=== PATIENT | female | born 1970 | race Caucasian/White ===

== ENCOUNTER 2019-07-31 11:02 | Inpatient (IN) | payer BC ==
[2019-07-31 12:31] LABS: #Eosinphils 0.2 thou/uL (0.0-0.7); #Lymphocytes 1.5 thou/uL (1.20-3.40); #Monocytes 0.7 thou/uL (0.11-0.59); #Neutrophils 8.9 thou/uL (1.40-6.50); %Basophils 0.3 % (0.0-1.0); %Eosinophils 1.4 % (0.0-10.0); %Lymphocytes 13.3 % (21.0-51.0); %Monocytes 5.8 % (0.0-10.0); %Neutrophils 79.1 % (42.0-75.0); Hemoglobin 14.1 g/dL (12.0-16.0); Mean Corpuscular HGB CONC 33.4 g/dL (32.0-36.0); Mean Platelet Volume 7.5 fL (7.4-10.4); Platelet Count 253 thou/uL (130-400); RBC Distribution Width 11.6 % (11.5-14.5); Red Blood Cell (RBC) Count 4.27 mill/uL (4.20-5.40); White Blood Cell (WBC) Count 11.2 thou/uL (4.8-10.8)
[2019-07-31 12:47] LABS: Band 14 % (5-11); Lymphocytes 12 % (21-51); MDiff Complete? YES; Monocytes 8 % (0-10); Neutrophil 65 % (42-75); Platelet Morphology Comment Appears Adequate; RBC Morphology Normal; Reactive Lymphocytes 1 % (0-10)
[2019-07-31 12:49] LABS: ALT (SGPT) 42 U/L (8-55); AST (SGOT) 21 U/L (5-34); Albumin 4.6 g/dL (3.5-5.0); Alkaline Phosphatase 87 U/L (40-110); Anion Gap 12 mmol/L (10-20); BUN (Urea Nitrogen) 15 mg/dL (7.0-18.7); Bilirubin, Total 0.4 mg/dL (0.2-1.2); Calc. Creatinine Clearance 0 mL/min (70-130); Calcium 9.6 mg/dL (7.8-10.44); Carbon Dioxide 26 mmol/L (22-29); Chloride 104 mmol/L (98-107); Estimated GFR-MDRD 54; Globulin 3.5 g/dL (2.4-3.5); Glucose 89 mg/dL (70-105); Protein, Total 8.1 g/dL (6.0-8.3); Sodium 138 mmol/L (136-145)
[2019-07-31] MEDS ORDERED: Lidocaine 1% w/Epinephrine 1:100K 20 ML VIAL NERVE BLCK SCH (13:15)
[2019-07-31] MEDS ORDERED: Clindamycin/D5W 900 MG in Premix Bag 1 BAG IVPB SCH (13:15)
[2019-07-31] MEDS ORDERED: Ketorolac Tromethamine 30 MG/ML VIAL IVP SCH (13:15)
[2019-07-31] MEDS ORDERED: Ketorolac Tromethamine 30 MG/ML VIAL ONE (13:23)
[2019-07-31] MEDS ORDERED: Clindamycin/D5W 900 mg/50 ml Premix Bag ONE (13:23)
[2019-07-31] MEDS ORDERED: Lidocaine 1% w/Epinephrine 1:100K 20 ML VIAL ONE (13:23)
[2019-07-31] MEDS ORDERED: Morphine 4 MG/ML VIAL ONE (13:50)
[2019-07-31] MEDS ORDERED: traMADol HCl 50 MG TAB PO PRN (16:12)
[2019-07-31 17:38] VITALS: BMI 31.8
--- NOTE | 2019-07-31 20:06 | PDOC.HHP ---
Hospitalist HPI - History of Present Illness abscess on face History of Present Illness: 49yo F w/ no MHx presents with facial abscess. Went to urgent care last sunday for swelling, prescribed bactrim (4d), didn't improve so prescribed augmentin (2d), but abscess continued to grow and tenderness worsened. On encounter, has no complaints other than the unresolving abscess. Denies fevers, chills, night sweats, facial trauma or shaving, tooth pain, recent travel, diabetes, or immunodeficiency. ED Course: In the ED, aspirated pus, was administered clindamycin, and was admitted to the floor for continued treatment. Hospitalist ROS - Review of Systems Constitutional: denies: fever, chills, sweats, weakness, malaise, other Eyes: denies: vision change, conjunctivae inflammation, eyelid inflammation, redness ENT: denies: mouth pain, mouth swelling, throat pain, throat swelling Respiratory: denies: cough, dry, shortness of breath, hemoptysis, SOB with excertion, pleuritic pain, sputum, wheezing, other Cardiovascular: denies: chest pain, palpitations, orthopnea, paroxysmal noc. 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 Gastrointestinal: reports: no pertinent history Heme/Onc: reports: no pertinent history - Past Surgical History Other Surgical History: x 2, breast reduction, gastric bypass - Family History Family History: reports: hypertension - Social History Smoking Status: Never smoker Alcohol: reports: Occassional Drugs: reports: none Living Situation: With Family Domestic Violence: Negative Activity level: independent ambulation - Exam General Appearance: NAD, awake alert Eye: PERRL, anicteric sclera ENT: no oropharyngeal lesions, moist mucosa Neck: no JVD Neck - other findings: left submandibular lymphadenopathy Heart: RRR, no murmur, no gallops, no rubs, normal peripheral pulses Respiratory: CTAB, no wheezes, no rales, no ronchi, normal chest expansion, no tachypnea, normal percussion Gastrointestinal: soft, non-tender, non-distended, normal bowel sounds, no palpable masses, no hepatomegaly, no splenomegaly, no bruit Skin - other findings: left indurated, fluctuant, draining, tender, rigid abscess about 5cm diamet Neurological: cranial nerve grossly intact, normal sensation to touch, no weakness, no focal deficits, no new deficit Hospitalist Results - Labs Result Diagrams: 07/31/19 12:14 07/31/19 12:14 Lab results: WBC 11.2 thou/uL (4.8-10.8) H 07/31/19 12:14 Hgb 14.1 g/dL (12.0-16.0) 07/31/19 12:14 Hct 42.3 % (36.0-47.0) 07/31/19 12:14 MCV 99.0 fL (78.0-98.0) H 07/31/19 12:14 Plt Count 253 thou/uL (130-400) 07/31/19 12:14 Neutrophils % 79.1 % (42.0-75.0) H 07/31/19 12:14 Band Neuts % (Manual) 14 % (5-11) H 07/31/19 12:14 Sodium 138 mmol/L (136-145) 07/31/19 12:14 Potassium 4.0 mmol/L (3.5-5.1) 07/31/19 12:14 Chloride 104 mmol/L (98-107) 07/31/19 12:14 Carbon Dioxide 26 mmol/L (22-29) 07/31/19 12:14 BUN 15 mg/dL (7.0-18.7) 07/31/19 12:14 Creatinine 1.08 mg/dL (0.6-1.1) 07/31/19 12:14 Glucose 89 mg/dL (70-105) 07/31/19 12:14 Calcium 9.6 mg/dL (7.8-10.44) 07/31/19 12:14 Total Bilirubin 0.4 mg/dL (0.2-1.2) 07/31/19 12:14 AST 21 U/L (5-34) 07/31/19 12:14 ALT 42 U/L (8-55) 07/31/19 12:14 Alkaline Phosphatase 87 U/L (40-110) 07/31/19 12:14 Serum Total Protein 8.1 g/dL (6.0-8.3) 07/31/19 12:14 Albumin 4.6 g/dL (3.5-5.0) 07/31/19 12:14 Hospitalist H&P A/P - Problem (1) Abscess of face Code(s): L02.01 - CUTANEOUS ABSCESS OF FACE Status: Acute - Plan Plan: -qSOFA 0, HD stable, and no compromise of swallowing or breathing -afebrile on presentation however, endorses being febrile when initially had abscess -could not appreciate orophalyngeal lesions however difficult to visualize due to swelling -not in nasolabial triangle -ED aspirated fluid and sent for cultures Plan: -started vancomycin pending cultures -consulted surgery since unlikely to resolve without debridment considering failed outpatient treatment and characteristics of abscess Dispo/PPx: Full code GI PPx: no Ix DVT PPx: SCD
[2019-07-31] MEDS ORDERED: Vancomycin 1.5 GRAM/300 ML BAG 1.5 GM in Premix Bag 1 BAG IVPB SCH (20:30)
[2019-07-31] MEDS ORDERED: Trospium 20 MG TAB PO SCH (21:00)
[2019-07-31] MEDS ORDERED: Acetaminophen 325 MG TAB PO PRN (21:17)
[2019-07-31] MEDS: Acetaminophen/Codeine 30-300mg Tablet PO PRN (21:26)
[2019-08-01] MEDS: Acetaminophen/Codeine 30-300mg Tablet PO PRN ×2 (04:55→10:22)
[2019-08-01 06:05] LABS: #Basophils 0.1 thou/uL (0.0-0.2); #Eosinphils 0.1 thou/uL (0.0-0.7); #Lymphocytes 2.2 thou/uL (1.20-3.40); #Monocytes 0.6 thou/uL (0.11-0.59); #Neutrophils 5.4 thou/uL (1.40-6.50); %Basophils 0.8 % (0.0-1.0); %Eosinophils 1.5 % (0.0-10.0); %Lymphocytes 26.3 % (21.0-51.0); %Monocytes 6.9 % (0.0-10.0); %Neutrophils 64.5 % (42.0-75.0); Hemoglobin 11.3 g/dL (12.0-16.0); Mean Corpuscular HGB CONC 32.9 g/dL (32.0-36.0); Mean Corpuscular Hemoglobin 32.1 pg (27.0-31.0); Mean Corpuscular Volume 97.8 fL (78.0-98.0); Mean Platelet Volume 7.9 fL (7.4-10.4); Platelet Count 225 thou/uL (130-400); RBC Distribution Width 11.5 % (11.5-14.5); Red Blood Cell (RBC) Count 3.51 mill/uL (4.20-5.40); White Blood Cell (WBC) Count 8.3 thou/uL (4.8-10.8)
[2019-08-01 06:24] LABS: Anion Gap 12 mmol/L (10-20); BUN (Urea Nitrogen) 17 mg/dL (7.0-18.7); Calc. Creatinine Clearance 84 mL/min (70-130); Carbon Dioxide 23 mmol/L (22-29); Chloride 107 mmol/L (98-107); Estimated GFR-MDRD 61; Glucose 89 mg/dL (70-105); Potassium 4.5 mmol/L (3.5-5.1); Sodium 137 mmol/L (136-145)
[2019-08-01] MEDS ORDERED: Enoxaparin Sodium 30 MG/0.3 ML SYRINGE SC SCH (09:00)
[2019-08-01] MEDS ORDERED: Morphine 2 MG/ML SYRINGE SLOW IVP SCH (12:30)
[2019-08-01] MEDS ORDERED: Morphine 2 MG/ML SYRINGE SLOW IVP PRN (13:50)
--- NOTE | 2019-08-01 15:11 | PDOC.HOSPP ---
- Subjective Encounter Date: 08/01/19 Encounter Time: 15:00 Subjective: no overnight evnets. this afternoon, s/p debridment by ENT. Complains of mild facial pain. on other complaints. - Objective Vital Signs & Weight: Vital Signs (12 hours) Temp Pulse Resp BP BP Pulse Ox 08/01/19 11:33 99.0 F 81 14 119/70 93 L 08/01/19 08:00 94 L 08/01/19 07:58 98.7 F 72 16 133/80 94 L 08/01/19 04:00 98.5 F 82 20 129/81 96 Weight Weight 168 lb 7 oz I&O: 07/31/19 08/01/19 08/02/19 06:59 06:59 06:59 Intake Total 620 Balance 620 Result Diagrams: 08/01/19 05:13 08/01/19 05:13 Hospitalist ROS - Review of Systems Constitutional: denies: fever, chills, sweats, weakness, malaise, other ENT: reports: other (left cheek pain at incision site) Respiratory: denies: cough, dry, shortness of breath, hemoptysis, SOB with excertion, pleuritic pain, sputum, wheezing, other Cardiovascular: denies: chest pain, palpitations, orthopnea, paroxysmal noc. dyspnea, edema, light headedness, other Gastrointestinal: denies: nausea, vomiting, abdominal pain, diarrhea, constipation, melena, hematochezia, other Genitourinary: denies: dysuria, frequency, incontinence, hematuria, retention, other Neurological: denies: weakness, numbness - Exam General Appearance: NAD, awake alert Eye: PERRL Heart: RRR, no murmur, no gallops, no rubs, normal peripheral pulses Respiratory: CTAB, no wheezes, no rales, no ronchi, normal chest expansion, no tachypnea, normal percussion Gastrointestinal: soft, non-tender, non-distended, normal bowel sounds, no palpable masses, no hepatomegaly, no splenomegaly, no bruit Skin - other findings: dressing over left cheek s/p bedside I&D Neurological: cranial nerve grossly intact, normal sensation to touch, no weakness, no focal deficits, no new deficit Psychiatric: normal affect, normal behavior, A&O x 3 Hosp A/P (1) Abscess of face Code(s): L02.01 - CUTANEOUS ABSCESS OF FACE Status: Acute - Plan -no signs of systemic infection -s/p I&D by ENT; appreciate aid and recommendations; ENT will see in office on Sunday -continue vancomycin until 08/01 -per ENT, DC on bactrim
[2019-08-01] MEDS ORDERED: Acetaminophen/Codeine 30-300mg Tablet PO PRN (15:16)
[2019-08-01] MEDS ORDERED: Morphine 4 MG/ML VIAL SLOW IVP PRN (15:23)
[2019-08-01] MEDS ORDERED: Vancomycin HCl 1.25 GM in Sodium Chloride 0.9% 250 ML 250 ML IVPB SCH (21:00)
[2019-08-02 07:23] LABS: Anion Gap 11 mmol/L (10-20); BUN (Urea Nitrogen) 15 mg/dL (7.0-18.7); Calc. Creatinine Clearance 92 mL/min (70-130); Carbon Dioxide 27 mmol/L (22-29); Chloride 107 mmol/L (98-107); Estimated GFR-MDRD 68; Glucose 99 mg/dL (70-105); Potassium 4.5 mmol/L (3.5-5.1); Sodium 140 mmol/L (136-145)
[2019-08-02 08:01] VITALS: TEMP 98.4
[2019-08-02 12:04] VITALS: BP 124/73
--- NOTE | 2019-08-03 02:22 | DIS ---
DATE OF ADMISSION: 07/31/2019 DATE OF DISCHARGE: 08/02/2019 PRIMARY CARE PROVIDER: Dr. Chas Rajput. DISCHARGE DIAGNOSIS: Facial abscess. CONDITION OF PATIENT ON THE DAY OF DISCHARGE: Stable. I assessed Ms. Corrigan on the day of discharge. She denies any chest pain or shortness of breath. Vital signs are stable. S1 and S2 are heard, regular. Lungs are clear to auscultation bilaterally. CONSULTATIONS DURING THIS HOSPITALIZATION: ENT Dr. Cooper. POST-ACUTE CARE FOLLOWUP: With ENT Service in 2 days and with primary care provider in 3 days. DISCHARGE MEDICATIONS: 1. Bactrim DS one tablet 2 times a day for 10 days. 2. Tylenol No. 3 p.r.n. HOSPITAL COURSE: Ms. Corrigan is a pleasant 49-year-old lady who was admitted to [facility] on 08/01/2019, for cellulitis and abscess on the right side of the face. She received intravenous antibiotics. She was seen by ENT Service and underwent incision and drainage. They will follow up in office in a couple of days. She is being discharged home on Bactrim. Many thanks for allowing me to participate in your patient's care. Please feel free to contact me with any questions or concerns. DIET: Regular. ACTIVITY: No restrictions. DISCHARGE DESTINATION: Home. TIME SPENT: Total amount of time spent coordinating this discharge: 32 minutes. Job ID: [id number]
== END 2019-08-02 12:08 | disposition home or self-care (01) | DRG 603 ==
LOC: ERS 11:02 → T4-B 14:16
PROVIDERS: ADMIT Internal Medicine; ATTEND Internal Medicine
PROC: 0J913ZZ Drainage of Face Subcutaneous Tissue and Fascia, Percutaneous Approach (ICD-10-PCS; principal; 2019-07-31)
DX: L02.01 Cutaneous abscess of face (principal); L03.211 Cellulitis of face; I10 Essential (primary) hypertension; Z88.6 Allergy status to analgesic agent; Z88.8 Allergy status to other drugs, medicaments and biological substances; Z98.84 Bariatric surgery status
CPT/HCPCS: 10160; 36415; 80048; 80053; 85025; 87040; 96365; 96375; J1885; J2270; J3370; J3490; J7050

== ENCOUNTER 2025-05-05 17:52 | Emergency (ER) | payer BC ==
[2025-05-05] MEDS ORDERED: Ibuprofen 800 MG TAB ONE (18:37)
[2025-05-05] MEDS ORDERED: Acetaminophen 500 MG TAB ONE (18:37)
== END 2025-05-05 18:58 | disposition home or self-care (01) ==
LOC: ERS 17:52
DX: S92.351A Displaced fracture of fifth metatarsal bone, right foot, initial encounter for closed fracture (principal); X50.1XXA Overexertion from prolonged static or awkward postures, initial encounter
CPT/HCPCS: 99283